=== PATIENT | female | born 1945 | race Caucasian/White ===

== ENCOUNTER → 2018-01-03 | Outpatient (CLI) | payer OTHER ==
--- NOTE | 2018-01-03 10:05 | DIAGNOSTIC IMAGING REPORT ---
L HAND MIN 3 VIEWS ROUTINE HISTORY: 72 years-old Female THUMB PAIN acute left thumb pain COMPARISON: None available TECHNIQUE: 4 views of the left hand FINDINGS: Mild radiocarpal and triscaphe the with moderate first carpometacarpal osteoarthritis. Corticated bone fragments adjacent to the base of the first metacarpal suggest fragmented osteophytes. Subcortical cystic changes of the lunate. No acute fracture, dislocation or opaque foreign body. The soft tissues are within normal limits. IMPRESSION: 1. No acute fracture or dislocation. 2. Degenerative changes as above including moderate first carpometacarpal osteoarthritis. The above report was generated using voice recognition software. It may contain grammatical, syntax or spelling errors. Electronically signed by: Roberto Perez M.D. 01/03/2018 10:03 AM Dictated Date/Time: 01/03/2018 10:01 AM
--- NOTE | 2018-01-03 10:06 | DIAGNOSTIC IMAGING REPORT ---
R HAND MIN 3 VIEWS ROUTINE HISTORY: 72 years-old Female THUMB PAIN acute right thumb pain COMPARISON: None available TECHNIQUE: 3 views of the right hand FINDINGS: Mild radiocarpal and triscaphe with moderate first carpal metacarpal osteoarthritis. Mild multidigit metacarpophalangeal osteoarthritis is also seen with areas of subcortical cystic change. No acute fracture or dislocation. Soft tissues are within normal limits without opaque foreign body. IMPRESSION: 1. No acute fracture or dislocation. 2. Degenerative changes as above with moderate osteoarthritis of the first carpal metacarpal joint. The above report was generated using voice recognition software. It may contain grammatical, syntax or spelling errors. Electronically signed by: Roberto Perez M.D. 01/03/2018 10:05 AM Dictated Date/Time: 01/03/2018 10:03 AM
[2018-01-03 14:49] LABS: BLOOD UREA NITROGEN 12 mg/dl (7-18); CALCIUM 8.3 mg/dl (8.5-10.1); CARBON DIOXIDE 30 mmol/L (21-32); CHOLESTEROL 181 mg/dl (0-200); CREATININE 0.67 mg/dl (0.60-1.20); GLUCOSE 90 mg/dl (70-99); POTASSIUM 4.3 mmol/L (3.5-5.1); SODIUM 140 mmol/L (136-145)
[2018-01-03 14:52] LABS: LDL CHOLESTEROL CALCULATED 107 mg/dl
== END | disposition home or self-care (01) ==
LOC: C.RADBC 09:12
PROVIDERS: ATTEND Internal Medicine
DX: M79.646 Pain in unspecified finger(s) (principal); E78.5 Hyperlipidemia, unspecified; M85.80 Other specified disorders of bone density and structure, unspecified site; I47.1 Supraventricular tachycardia; M18.0 Bilateral primary osteoarthritis of first carpometacarpal joints; M19.041 Primary osteoarthritis, right hand; M19.042 Primary osteoarthritis, left hand

== ENCOUNTER → 2018-01-03 | Outpatient (CLI) | payer OTHER ==
--- NOTE | 2018-01-04 15:06 | MAMMOGRAPHY REPORT ---
BILATERAL DIGITAL SCREENING MAMMOGRAM TOMOSYNTHESIS WITH CAD: 01/03/2018 CLINICAL HISTORY: Routine screening. Patient has no complaints. TECHNIQUE: Breast tomosynthesis in addition to standard 2D mammography was performed. Current study was also evaluated with a Computer Aided Detection (CAD) system. COMPARISON: Comparison is made to exams dated: 07/01/2016 mammogram, 10/23/2013 mammogram - [facility], 05/20/2009, 05/13/2009, 02/12/2008, and 11/14/2006. BREAST COMPOSITION: The tissue of both breasts is extremely dense, which lowers the sensitivity of m ammography. FINDINGS: The parenchymal pattern is similar to prior mammograms. There is a benign rim calcificati on in each breast. No developing mass, architectural distortion or cluster of suspicious microcalcif ications is seen. IMPRESSION: ACR BI-RADS CATEGORY 2: BENIGN There is no mammographic evidence of malignancy. A 1 year screening mammogram is recommended. The pa tient will receive written notification of the results. Approximately 10% of breast cancers are not detected with mammography. A negative mammographic report should not delay biopsy if a clinically suggestive mass is present. Lesly Curran M.D. ay/:01/03/2018 16:26:30 Cinema Operator: Laura Bazzi M, [facility] letter sent: Normal 1/2 BI-RADS Code: ACR BI-RADS Category 2: Benign
== END | disposition home or self-care (01) ==
LOC: C.MAMM 11:07
PROVIDERS: ATTEND Obstetrics & Gynecology
DX: Z12.31 Encounter for screening mammogram for malignant neoplasm of breast (principal)